=== PATIENT | male | born 1990 | race Caucasian/White ===

== ENCOUNTER 2018-05-28 11:42 | Emergency (ER) | payer OTHER ==
[2018-05-28 11:42] VITALS: TEMP 98
[2018-05-28 12:24] LABS: BASO # 0.1 (0.0-0.2); BASO % 0.3 % (0.0-2.0); EOS % 0.1 % (0-4.0); GRAN # 19.6 (1.4-6.5); GRAN % 82.8 % (42.2-75.2); HEMATOCRIT 41.1 % (42.0-52.0); HEMOGLOBIN 15.2 g/dl (13.5-18.0); LYMPH # 2.2 (1.2-3.4); LYMPH % 9.2 % (20.0-51.0); MEAN CELL VOLUME 86 fl (80.0-100.0); MEAN CORPUSCULAR HEMOGLOBIN 32 pg (27.0-31.0); MEAN CORPUSCULAR HGB CONC 37 g/dl (33.0-37.0); MEAN PLATELET VOLUME 9.9 fl (7.4-10.4); MONO # 1.6 (0.1-0.6); MONO % 6.8 % (1.7-9.3); PLATELET COUNT 263 K/mm3 (130-400); REDCELL DISTRIBUTION WIDTH-CV 11.7 % (11.5-14.5)
[2018-05-28 12:34] LABS: ALBUMIN 4.2 gm/dL (3.5-5.0); BILIRUBIN,TOTAL 0.8 mg/dL (0.0-1.0); CALCIUM 8.8 mg/dL (8.4-10.2); CREATININE, serum 0.99 mg/dL (0.66-1.25); POTASSIUM 3.8 mmol/L (3.4-5.0); TOTAL PROTEIN 6.8 gm/dL (6.4-8.2)
[2018-05-28 13:20] VITALS: BP 146/90; PULSE 83
== END 2018-05-28 13:20 | disposition short-term general hospital (02) ==
LOC: COL.ER 11:42
PROVIDERS: Family Medicine
DX: S32.402A Unspecified fracture of left acetabulum, initial encounter for closed fracture (principal); V53.5XXA Driver of pick-up truck or van injured in collision with car, pick-up truck or van in traffic accident, initial encounter
CPT/HCPCS: J2405; J3010; J7030; Q9967

== ENCOUNTER 2018-09-05 14:45 | Outpatient (RCR) | payer OTHER | END 2018-09-08 | disposition home or self-care (01) | LOC: MKS.ESL.PT | DX: S32.432D Displaced fracture of anterior column [iliopubic] of left acetabulum, subsequent encounter for fracture with routine healing (principal); S32.442D Displaced fracture of posterior column [ilioischial] of left acetabulum, subsequent encounter for fracture with routine healing; S73.005D Unspecified dislocation of left hip, subsequent encounter; V49.60XD Unspecified car occupant injured in collision with unspecified motor vehicles in traffic accident, subsequent encounter | CPT/HCPCS: G0283-GP ==

== ENCOUNTER 2018-12-05 08:15 | Outpatient (RCR) | payer OTHER | END 2018-12-08 | disposition home or self-care (01) | LOC: MKS.ESL.PT | DX: S72.002D Fracture of unspecified part of neck of left femur, subsequent encounter for closed fracture with routine healing (principal); V49.9XXD Car occupant (driver) (passenger) injured in unspecified traffic accident, subsequent encounter ==

== ENCOUNTER 2018-12-17 08:15 | Outpatient (RCR) | payer OTHER | END 2018-12-25 12:48 | disposition home or self-care (01) | LOC: MKS.ESL.PT 08:15 | DX: S73.005A Unspecified dislocation of left hip, initial encounter (principal); V89.2XXA Person injured in unspecified motor-vehicle accident, traffic, initial encounter; Z98.890 Other specified postprocedural states ==

== ENCOUNTER 2019-03-11 13:45 | Outpatient (RCR) | payer OTHER | END 2019-04-14 08:11 | disposition home or self-care (01) | LOC: MKS.ESL.PT 13:45 | DX: M25.552 Pain in left hip (principal); R53.1 Weakness; R29.898 Other symptoms and signs involving the musculoskeletal system | CPT/HCPCS: G0283-GP ==

== ENCOUNTER 2019-07-08 08:00 | Outpatient (RCR) | payer OTHER | END 2019-07-26 | LOC: MKS.ESL.PT | DX: S32.442D Displaced fracture of posterior column [ilioischial] of left acetabulum, subsequent encounter for fracture with routine healing (principal) ==

== ENCOUNTER 2019-09-15 09:06 | Emergency (ER) | payer BC ==
[~2019-09-15] VITALS: Ht 177.8 cm; Wt 90.9 kg
[2019-09-15 09:17] VITALS: TEMP 98.8
[2019-09-15 09:58] LABS: BASO % 0.6 % (0.0-2.0); EOS % 0.4 % (0-4.0); GRAN % 71.4 % (42.2-75.2); HEMATOCRIT 46.4 % (42.0-52.0); HEMOGLOBIN 16.4 g/dl (13.5-18.0); LYMPH # 1.3 (1.2-3.4); LYMPH % 17.7 % (20.0-51.0); MEAN CELL VOLUME 89 fl (80.0-100.0); MEAN CORPUSCULAR HEMOGLOBIN 31 pg (27.0-31.0); MEAN CORPUSCULAR HGB CONC 35 g/dl (33.0-37.0); MEAN PLATELET VOLUME 9.3 fl (7.4-10.4); MONO # 0.7 (0.1-0.6); MONO % 9.6 % (1.7-9.3); PLATELET COUNT 235 K/mm3 (130-400); RED BLOOD COUNT 5.24 M/mm3 (4.20-5.60); REDCELL DISTRIBUTION WIDTH-CV 11.9 % (11.5-14.5)
[2019-09-15 10:12] LABS: ALANINE AMINOTRANSFERASE 33 U/L (21-72); ALBUMIN 4.9 gm/dL (3.5-5.0); ALKALINE PHOSPHATASE 51 U/L (50-136); ANION GAP 11 mmol/L (7-16); AST,SGOT 22 U/L (15-37); BILIRUBIN,TOTAL 0.5 mg/dL (0.0-1.0); BLOOD UREA NITROGEN 13 mg/dL (9-20); C-REACTIVE PROTEIN < 0.5 mg/dL (0.0-0.9); CALCIUM 9.4 mg/dL (8.4-10.2); CARBON DIOXIDE 27 mmol/L (22-30); CHLORIDE 104 mmol/L (98-107); CREATININE, serum 0.95 (0.66-1.25); GLUCOSE 109 mg/dL (74-106); POTASSIUM 3.9 mmol/L (3.4-5.0); SODIUM 142 mmol/L (137-145); TOTAL PROTEIN 7.9 gm/dL (6.4-8.2)
[2019-09-15 12:05] VITALS: BP 133/95; PULSE 79
== END 2019-09-15 12:15 | disposition home or self-care (01) ==
LOC: COL.ER 09:06
PROVIDERS: Nurse Practitioner
DX: R10.31 Right lower quadrant pain (principal)
CPT/HCPCS: J7030; Q9967

== ENCOUNTER 2021-06-02 16:15 | Outpatient (RCR) | payer OTHER | END 2021-07-03 08:34 | disposition home or self-care (01) | LOC: MKS.ESL.PT 16:15 | DX: S32.402D Unspecified fracture of left acetabulum, subsequent encounter for fracture with routine healing (principal) ==

== ENCOUNTER 2023-08-12 09:45 | Outpatient (RCR) | payer OTHER | END 2023-09-01 | disposition home or self-care (01) | LOC: WSPT | DX: S73.192D Other sprain of left hip, subsequent encounter (principal); M25.852 Other specified joint disorders, left hip; X58.XXXD Exposure to other specified factors, subsequent encounter ==